=== PATIENT | female | born 1980 | race Caucasian/White ===

== ENCOUNTER → 2017-01-27 | Outpatient (CLI) | payer OTHER | LOC: MC.RAD 10:20 | DX: N64.4 Mastodynia (principal) ==

== ENCOUNTER 2023-06-07 15:46 | Outpatient (CLI) | payer OTHER ==
[~2023-06-07] VITALS: Ht 165.1 cm; Wt 107.3 kg
--- NOTE | 2023-06-07 16:05 | NUR ---
PT AMBULATORY TO LR3. CHANGED INTO CLEAN GOWN. FHR MONITOR/TOCO APPLIED. PT CAME IN COMPLAINING OF CONTRACTION LIKE PAIN. PT DENIES ANY VAGINAL BLEEDING OR LEAKING OF FLUID. PT REPORTS GOOD MOVEMENT. MATERNAL VITAL SIGNS WNL. AFEBRILE. SVE AT 1610 BY THIS RN /-2
[2023-06-07] MEDS ORDERED: ASPIRIN 81M81 MG/TA2 PO (16:24)
[2023-06-07] MEDS ORDERED: PRENATAL TABLET PO (16:26)
[2023-06-07 16:30] VITALS: BP 153/79; PULSE 105; TEMP 98.2
[2023-06-07 17:00] VITALS: BP 144/79; PULSE 91
[2023-06-07 17:12] LABS: BASO % 0.3 % (0.0-2.0); EOS # 0.2 K/mm3 (0.0-0.7); EOS % 1.6 % (0.0-4.0); GRAN # 9.2 K/mm3 (1.4-6.5); HEMATOCRIT 34.7 % (37.0-47.0); LYMPH # 1.9 K/mm3 (1.2-3.4); LYMPH % 15.7 % (20.0-51.0); MEAN CELL VOLUME 90 fl (80.0-100.0); MEAN CORPUSCULAR HEMOGLOBIN 31 pg (27-31); MEAN CORPUSCULAR HGB CONC 35 g/dl (33.0-37.0); MEAN PLATELET VOLUME 9.1 fl (7.4-10.4); MONO # 0.9 K/mm3 (0.1-0.6); MONO % 7.1 % (1.7-9.3); PLATELET COUNT 258 K/mm3 (130-400); RED BLOOD COUNT 3.87 M/mm3 (4.10-5.30); REDCELL DISTRIBUTION WIDTH-CV 12.6 % (11.5-14.5)
[2023-06-07 17:20] LABS: ALBUMIN 2.7 gm/dL (3.5-5.0); BILIRUBIN,TOTAL 0.3 mg/dL (0.2-1.2); CALCIUM 9.4 mg/dL (8.4-10.2); CREATININE, serum 0.58 mg/dL (0.57-1.11); POTASSIUM 3.8 mmol/L (3.5-4.5); TOTAL PROTEIN 6.5 gm/dL (6.2-8.1)
[2023-06-07 17:21] LABS: COLLECTION METHOD CLEAN CATCH; URINE APPEARANCE Clear (CLEAR/HAZY); URINE BLOOD Negative (NEGATIVE); URINE COLOR Yellow (YELLOW); URINE GLUCOSE Negative (NEGATIVE); URINE KETONE Negative (NEGATIVE); URINE NITRATE Negative (NEGATIVE); URINE PROTEIN(semi-quant) Negative (NEGATIVE); URINE UROBILINOGEN 0.2 E.U/dL (0.2-1.0); URINE WBC 0-2 /hpf (0-2)
[2023-06-07 17:22] LABS: SQUAMOUS EPITHELIAL 0-2 /hpf (0-10); URINE BACTERIA Rare /hpf (NONE SEEN); URINE RBC 0-2 /hpf (0-2)
[2023-06-07 17:30] VITALS: BP 134/78; PULSE 94
== END 2023-06-07 18:05 | disposition home or self-care (01) ==
LOC: LDRO 15:46
PROVIDERS: Obstetrics & Gynecology
DX: O62.4 Hypertonic, incoordinate, and prolonged uterine contractions (principal); Z3A.30 30 weeks gestation of pregnancy

== ENCOUNTER 2023-06-08 10:45 | Outpatient (CLI) | payer OTHER ==
[~2023-06-08] VITALS: Ht 165.1 cm; Wt 107.3 kg
[2023-06-08 09:00] VITALS: PULSE 103; TEMP 98.2
--- NOTE | 2023-06-08 09:00 | NUR ---
917563.3, G5L1 arrives on unit with c/o ctx every 2-5min that started yesterday afternoon. Denies any LOF. Reports some brown spotting, but states she was checked yesterday in L&D. Report normal movement. Oriented to room and plan of care. Changes into clean gown. [id number] placed and tracing well. VS obtained. Assessment complted. SVE by Vicky Mills RN //HI and posterior. Dr. Cheema updated on pt. See physician notificaiton.
[2023-06-08 09:30] VITALS: PULSE 89
[2023-06-08 10:00] VITALS: BP 122/79; PULSE 83
[2023-06-08 10:30] VITALS: PULSE 95
[~2023-06-08 10:45] MED LIST: ASPIRIN 81M81 MG/TA2 PO; PRENATAL TABLET PO
[2023-06-08 11:00] VITALS: PULSE 105
[2023-06-08 11:30] VITALS: PULSE 98
--- NOTE | 2023-06-08 11:32 | NUR ---
1115 [facility]. 0/50/-3. PATIENT STATES THE PAIN THAT SHE WAS FEELING IS MUCH BETTER AND LESS INTENSE. NO CONTRACTIONS ON MONITOR OE PALPATED. ALL DISCHARGE INSTRUCTIONS GIVEN TO PATIENT AND WITH VERBAL UNDERSTANDING NOTED. DENIES NEEDS.
== END 2023-06-08 11:35 | disposition home or self-care (01) ==
LOC: LDRO 10:45 → LDR 11:00
DX: O47.03 False labor before 37 completed weeks of gestation, third trimester (principal); Z3A.30 30 weeks gestation of pregnancy
CPT/HCPCS: J3105

== ENCOUNTER 2023-08-09 08:52 | Inpatient (IN) | payer OTHER ==
[2023-08-09] VITALS (15 sets, daily range): BP systolic 86–136; BP diastolic 58–85; PULSE 81–101; TEMP 97
[~2023-08-09] VITALS: Ht 167.7 cm; Wt 115.0 kg
[~2023-08-09 08:52] MED LIST changes: +LR 1,000 ML IV SCH; +Ondansetron 4 MG/2 ML VIAL IV SCH
--- NOTE | 2023-08-09 10:25 | NUR ---
PT AMBULATORY TO ROOM 211 WITH SPOUSE. PT HERE FOR REPEAT SECTION. PT CHANGED INTO CLEAN GOWN. FHR MONITOR/TOCO APPLIED. PT DENIES ANY VAGINAL BLEEDING, OR LEAKING OF FLUID. PT REPORTS GOOD MOVEMENT AND SOME IRREGULAR CONTRACTIONS.
[2023-08-09] MEDS ORDERED: LR 1,000 ML IV SCH (10:30)
[2023-08-09] MEDS ORDERED: PRILOSEC 20MG20 MG PO (10:46)
[2023-08-09] MEDS ORDERED: Oxytocin 10 UNITS/ML VIAL ONE (11:44)
[2023-08-09] MEDS ORDERED: ePHEDrine 50 MG/ML VIAL ONE (11:44)
[2023-08-09] MEDS ORDERED: Phenylephrine 10 MG/ML VIAL ONE (11:44)
[2023-08-09] MEDS ORDERED: NS 10 ML IV ONE ×2 (11:46→12:54)
[2023-08-09 12:13] LABS: BASO % 0.3 % (0.0-2.0); EOS % 0.4 % (0.0-4.0); GRAN # 7.9 K/mm3 (1.4-6.5); GRAN % 76.9 % (42.2-75.2); HEMATOCRIT 39.9 % (37.0-47.0); HEMOGLOBIN 12.9 g/dl (12.5-16.0); LYMPH # 1.5 K/mm3 (1.2-3.4); LYMPH % 15.1 % (20.0-51.0); MEAN CELL VOLUME 95 fl (80.0-100.0); MEAN CORPUSCULAR HEMOGLOBIN 31 pg (27-31); MEAN CORPUSCULAR HGB CONC 32 g/dl (33.0-37.0); MEAN PLATELET VOLUME 11.1 fl (7.4-10.4); MONO # 0.7 K/mm3 (0.1-0.6); MONO % 6.8 % (1.7-9.3); PLATELET COUNT 228 K/mm3 (130-400); RED BLOOD COUNT 4.21 M/mm3 (4.10-5.30)
[2023-08-09] MEDS ORDERED: Ketorolac 30 MG/ML VIAL ONE (12:54)
[2023-08-09] MEDS ORDERED: dexAMETHasone 10 MG/ML VIAL ONE (12:54)
[2023-08-09] MEDS ORDERED: Magnes Hydrox (MOM) 80 MG/ML 30 ML CUP PO PRN (13:15)
[2023-08-09] MEDS ORDERED: Loratadine 10 MG TAB PO PRN (13:15)
[2023-08-09] MEDS ORDERED: Measles/Mumps/Rubella Virus Vaccine Live w Diluent 0.5 ML VIAL SQ SCH (15:30)
[2023-08-09] MEDS ORDERED: LR 1,000 ML IV PRN (15:30)
[2023-08-09] MEDS ORDERED: Ondansetron 4 MG/2 ML VIAL IV PRN (15:30)
[2023-08-09] MEDS ORDERED: oxyCODONE 5 MG TAB PO PRN ×2 (15:30→17:45)
[2023-08-09] MEDS ORDERED: Morphine 4 MG/ML VIAL IV PRN (15:30)
[2023-08-09] MEDS ORDERED: Acetaminophen 500 MG TAB PO SCH (15:30)
[2023-08-09] MEDS ORDERED: Naloxone 0.4 MG/ML VIAL IV PRN (15:30)
[2023-08-09] MEDS ORDERED: Sennosides/Docusate 8.6-50 MG TAB PO SCH (17:00)
[2023-08-09] MEDS ORDERED: Ibuprofen 600 MG TAB PO SCH (19:15)
[2023-08-09] MEDS ORDERED: traZODone 50 MG TAB PO PRN (21:00)
[2023-08-10] MEDS ORDERED: Morphine 4 MG/ML VIAL IV PRN (02:45)
[2023-08-10 04:45] LABS: HEMOGLOBIN 11.4 g/dl (12.5-16.0)
[2023-08-10 04:50] LABS: HEMATOCRIT 33.4 % (37.0-47.0)
[2023-08-10] MEDS ORDERED: Prenatal Vitamins/Iron/FA TAB PO SCH (09:00)
[2023-08-10 09:23] VITALS: BP 130/71; PULSE 92; TEMP 97.8
--- NOTE | 2023-08-10 10:48 | NUR ---
Initial visitl Patient thanked Refrigeration Technician for offering God's blessings for the of her daughter. Refrigeration Technician thanked family for choosing [facility].
[2023-08-10 12:59] VITALS: BP 141/82; PULSE 97
--- NOTE | 2023-08-10 14:00 | NUR ---
THIS RN GIVES REPORT TO SIRENA FRAZIER RN
[2023-08-10 17:15] VITALS: BP 136/85; PULSE 91; TEMP 98
[2023-08-10 20:35] VITALS: BP 149/81; PULSE 98; TEMP 97.8
[2023-08-11] MEDS ORDERED: IBU600 MG PO (07:47)
[2023-08-11] MEDS ORDERED: ROXICODONE 55 MG/TAB PO (07:48)
[2023-08-11] MEDS ORDERED: TYLENOL 500MG500 MG PO (07:48)
[2023-08-11 08:44] VITALS: BP 151/83; PULSE 79; TEMP 98.9
[2023-08-11 11:53] VITALS: BP 148/82; PULSE 89
== END 2023-08-11 17:00 | disposition home or self-care (01) | DRG 788 ==
LOC: OB
PROVIDERS: ADMIT Obstetrics & Gynecology
PROC: 10D00Z1 Extraction of Products of Conception, Low, Open Approach (ICD-10-PCS; principal; 2023-08-09)
DX: O34.211 Maternal care for low transverse scar from previous cesarean delivery (principal); Z3A.39 39 weeks gestation of pregnancy; Z37.0 Single live birth; O99.214 Obesity complicating childbirth; O34.13 Maternal care for benign tumor of corpus uteri, third trimester; D25.9 Leiomyoma of uterus, unspecified; O13.4 Gestational [pregnancy-induced] hypertension without significant proteinuria, complicating childbirth; Z91.040 Latex allergy status; Z90.79 Acquired absence of other genital organ(s)
CPT/HCPCS: J0665; J0690; J1100; J1885; J2270; J2371; J2405; J2590; J2765; J7120